=== PATIENT | female | born 1995 ===

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

== ENCOUNTER → 2017-04-25 | Outpatient (CLI) | payer MEDICAID | LOC: LAB 17:02 | PROVIDERS: ATTEND Emergency Medicine | DX: N39.0 Urinary tract infection, site not specified (principal); Z32.01 Encounter for pregnancy test, result positive | CPT/HCPCS: 87086 ==